=== PATIENT | female | born 1970 | race Caucasian/White ===

== ENCOUNTER 2017-09-05 20:04 | Emergency (ER) | payer OTHER ==
[~2017-09-05] VITALS: Ht 175.3 cm; Wt 104.0 kg
[2017-09-05 20:08] VITALS: TEMP 36.5; Ht 175.3 cm; Wt 104.0 kg
[2017-09-05] MEDS ORDERED: CLINDAMYCIN HCL 150 MG CAP PO STA (20:28)
[2017-09-05] MEDS ORDERED: LIDOCAINE/EPINEPH/TETRACAINE 1 EA SYR EXT STA (20:28)
[2017-09-05] MEDS ORDERED: CLINDAMYCIN 150MG HOME PACK PO ONE ×2 (20:30)
[2017-09-05] MEDS ORDERED: HYDROCODONE/ACETAMIN 5/325MG TAB PO STA (21:58)
[2017-09-05] MEDS ORDERED: CLIN300C2 PO (22:00)
--- NOTE | 2017-09-05 22:01 | EMERGENCY ROOM VISIT NOTE ---
ED Visit Note First contact with patient: 20:14 CHIEF COMPLAINT: Toothache HISTORY OF PRESENT ILLNESS: This is a 47-year-old female who presents to the emergency department with complaint of tooth and facial pain that started today. She states initially that she just noticed some swelling of her left lower jaw, it started to throb and become more painful this afternoon. She has taken Aleve with some improvement in her pain. The patient believes it is coming from left back lower molar, which she states is broken. The pain is now steady and severe and radiates to the face. The patient is in the process of getting a dentist appointment set up, and states that she has several bad teeth that need to be extracted. They rate their pain a 8/10 and throbbing. The patient denies any discharge from the mouth. She denies any fevers or chills, neck pain or swelling, difficulty swallowing, difficulty breathing, headache. REVIEW OF SYSTEMS: A 6 system review of systems was completed with positives and pertinent negatives listed in the HPI. ALLERGIES: Penicillins MEDICATIONS: No medications PMH: No significant past medical or surgical history. Tetanus is up-to-date. SOCIAL HISTORY: Lives at home. Current every day smoker. Denies alcohol or recreational drug use. PHYSICAL EXAM: Vitals are noted on the nurse's note and reviewed by myself. Vital signs stable, afebrile. GENERAL: Pleasant and cooperative, in no acute distress, non-diaphoretic, well-developed well-nourished. Mouth: The left lower second molar is noted to be broken off, very carious, and the gum is swollen and tender around it. There is an area of fluctuance noted on the lateral aspect of the tooth consistent with an abscess. She has a complete upper plate of dentures. Her lower teeth are very carious throughout with several broken and missing teeth, poor dentition throughout. The remainder of the pharynx and tonsils are without erythema, edema, or exudate. The airway is patent. There is mild facial swelling of the left lower jaw that is tender to palpation, no cervical or submandibular lymphadenopathy. The patient appears uncomfortable and in pain. The patient has overall poor dental hygiene. EARS: External auditory canals clear, tympanic membranes pearly blake without erythema or effusion bilaterally. HEART: Regular rate and rhythm, no murmurs, gallops or rubs. Normal peripheral perfusion. No edema. LUNGS: Clear to auscultation throughout with no wheezes, rhonchi, crackles, or stridor. ED COURSE: I examined the patient. Exam findings consistent for periapical abscess of the left lower second molar. Verbal consent was obtained to perform the procedure. LET gel was applied to the oral abscess for anesthesia. After adequate anesthesia achieved, the abscess was incised with a number 11 scalpel blade. A moderate amount of purulent and bloody material was released with more expressed by pressure. The abscess cavity was then copiously irrigated with sterile saline under pressure. The area was then packed with a gauze roll , with hemostasis achieved. The patient tolerated the procedure well. Patient was given a [place] for pain control after the procedure. She was encouraged to continue Tylenol and Motrin at home for pain management. Rx for clindamycin was sent to the pharmacy, first dose given in the ED and a take home pack. Patient was encouraged to follow closely with her dentist for definitive management of her broken and carious teeth. She was also given strict return precautions should her symptoms worsen, she verbalized understanding. Patient was discharged home in stable condition and ambulatory. Current/Historical Medications Scheduled Clindamycin Hcl (Cleocin), 300 MG PO QID Allergies Coded Allergies: Penicillins (Verified Allergy, Unknown, nauseated and dizzy, 09/05/17) Vital Signs Date Time Temp Pulse Resp B/P (MAP) Pulse Ox O2 Delivery O2 Flow Rate FiO2 09/05/17 22:26 81 16 136/79 97 09/05/17 20:08 36.5 83 18 142/86 96 Room Air Medications Administered Medications (Trade) Dose Ordered Sig/Hazel Route Start Time Stop Time Status Last Admin Dose Admin Tetracaine/ Epinephrine/ Lidocaine (L.e.t. Gel 4%/ 1:100/0.5%) 1 ea UD STAT EXT 09/05/17 20:28 09/05/17 20:42 DC 09/05/17 20:55 1 EA Clindamycin HCl (Cleocin Cap) 300 mg NOW STAT PO 09/05/17 20:28 09/05/17 20:42 DC 09/05/17 20:55 300 MG Clindamycin HCl (Cleocin 150MG Home Pack) 1 homepack UD ONCE PO 09/05/17 20:30 09/05/17 20:42 DC 09/05/17 20:55 1 HOMEPACK Clindamycin HCl (Cleocin 150MG Home Pack) 1 homepack UD ONCE PO 09/05/17 20:30 09/05/17 20:42 DC 09/05/17 20:55 1 HOMEPACK Acetaminophen/ Hydrocodone Bitart ([place] 5/325 Tab) 1 tab NOW STAT PO 09/05/17 21:58 09/05/17 21:59 DC 09/05/17 22:20 1 TAB Departure Information Impression Primary Impression: Dental abscess Dispostion Home / Self-Care Condition GOOD Prescriptions Clindamycin Hcl (CLEOCIN) 300 Mg Cap 300 MG PO QID for 9 Days, #36 CAP Prov: Alisa Gooden, [employer] 09/05/17 Referrals No Doctor, Assigned (PCP) Patient Instructions ED Abscess Dental, [facility] Additional Instructions You have been treated in the Emergency Department for Dental Pain. You have received pain medicine in the emergency department which impairs your ability to operate a vehicle. It is illegal for you to drive after receiving these medicines. You were prescribed clindamycin to be taken 300 mg 4 times a day for 10 days. This is an antibiotic. All antibiotics have the potential to cause diarrhea. Stop this medication and contact a medical provider if you were to develop any significant adverse side effects including: wheezing, shortness of breath, passing out, vomiting, or a diffuse rash. Always take antibiotics as directed and COMPLETE the ENTIRE course regardless of the improvement of your symptoms. For pain control, you can use the following [id number] medicines (if >12 yo): - Extra strength (500mg/tab) Tylenol (acetaminophen) 1-2 tabs every 6-8 hours as needed. Do not exceed 6 tablets in a 24 hour period. Avoid taking more than 3 grams (3000 mg) of Tylenol per day. This includes any other sources of acetaminophen you may take on a regular basis. - Regular strength (200 mg/tab) Advil (ibuprofen) 3 tabs every 6-8 hours as needed. Do not exceed a dose of 2400 mg per day. For best results, alternate between the ibuprofen and the Tylenol every 3-4 hours. Apply warm compresses to the left side of your r face frequently throughout the day for comfort. Swish and spit with warm salt water 4 times a day for the next 2-3 days to help the abscess in your mouth heal. Refrain from smoking cigarettes or using chewing tobacco until you have been evaluated by your dentist. Keeping beverages lukewarm and consuming soft foods can decrease your pain. You MUST seek evaluation of your dental pain by a dentist following your visit to the Emergency Department. The Emergency Department is not capable of treating dental issues long-term. You should call your dentist as soon as possible to make an appointment for evaluation of your dental pain. Return to the emergency department if you develop the following symptoms despite treatment course outlined above: fevers/chills, severe worsening pain, increased redness or swelling of your face or neck, difficulty swallowing or breathing, increased pus discharge from the mouth, or any other concerns. Work Instructions Return To Work: 2 days
[2017-09-05 22:26] VITALS: BP 136/79; PULSE 81; O2SAT 97
== END 2017-09-05 22:23 | disposition home or self-care (01) ==
LOC: C.EDB 20:05 → C.EDD 22:23
DX: K04.7 Periapical abscess without sinus (principal); Z88.0 Allergy status to penicillin; F17.200 Nicotine dependence, unspecified, uncomplicated

== ENCOUNTER 2024-03-07 01:21 | Inpatient (IN) ==
--- NOTE | 2024-03-07 01:38 | Emergency Department Note ---
Impression & Plan Open dislocation of right elbow, Alcohol intoxication, Obesity (BMI 30-39.9), Fall ED Provider Note CHIEF COMPLAINT: Right elbow pain HISTORY OF PRESENT ILLNESS: This 53 yo female patient with PMH of ETOH dependency, obesity presents to the emergency department after a fall tonight. Patient states she fell trying to take her dog out, was unable to get up and realized that her right arm was not working. She admits to 2 strong drinks this evening. EMS was called after her daughter found her. She believes she was on the ground for about 1 hour prior to getting her daughter's attention who was upstairs. There is a large laceration over the right elbow and the "bones are visible." 911 advised applying a tourniquet to the upper arm. BLS arrived and applied a second tourniquet. Both tourniquets were removed upon ALS arrival by my medical command without any significant bleeding thereafter. Patient states her tetanus status is not up-to-date. Patient denies any other injuries, states she did not hit her head. REVIEW OF SYSTEMS: A review of systems was performed with positives and pertinent negatives listed in the history of present illness. 10 systems were reviewed and are otherwise negative. ALLERGIES: see below MEDICATIONS: see below PMH: see below SOCIAL HISTORY: see below DDx: Intracranial hemorrhage, skull fracture, neck injury, elbow laceration, joint dislocation, fracture among others. PHYSICAL EXAM: Vital signs reviewed. General: Morbidly obese, disheveled 53-year-old female. In some discomfort. HEENT: No scleral icterus, PERRLA, neck supple. Small abrasion bleeding at the chin. Cardiovascular: Regular rate and rhythm, no extra sounds. Pulmonary: Clear to auscultation bilaterally, normal work of breathing. Abdomen: Soft, obese, nontender, nondistended, positive bowel sounds. Musculoskeletal: Right elbow deformity with notable 4 to 5 cm laceration, elbow joint visible and dislocated. Bleeding is well-controlled. Neurovascularly intact distally. Neurologic: Patient awake alert and oriented x 3, speech is clear. Intoxicated. Skin: Warm, dry, laceration as described above. EMERGENCY DEPARTMENT COURSE/MDM: This patient was evaluated and appeared to be in significant discomfort. Evaluation of the right elbow reveals an open dislocation with a large laceration. No active bleeding. X-rays were obtained and revealed no fracture however the joint is dislocated. Patient had been medicated with IV fentanyl prior to arrival. She was given IV hydration. CT imaging of the head and cervical spine were performed and reveal no evidence of acute traumatic findings. Cervical collar was removed. EKG reveals a normal sinus rhythm. Patient's laboratory work reveals that she is significantly intoxicated. She was given 2 g of IV Ancef and her tetanus status is updated. She was kept n.p.o. Dr. Dougherty of orthopedics was consulted and evaluated the patient in the emergency department. Pt was taken to the OR for definitive management. MONITORING: An order for cardiac monitoring was placed and the patient is noted to be in a normal sinus rhythm at 81 beats per minute. RADIOLOGY: X-ray of the right elbow to my interpretation reveals dislocation, no obvious fracture. Please see radiology's read CXR to my interpretation reveals no acute process. See radiology's overread CT imaging of the head to my interpretation and radiology's over read reveals no evidence of acute intracranial pathology. CT imaging of the cervical spine reveals no evidence of acute fracture or malalignment. EKG: To my interpretation reveals a normal sinus rhythm at 73 bpm. QTc is 451. Normal ST segments. No PVC, no PAC. DISPOSITION: Admission/OR I have personally spent 45 minutes of critical care time in the direct management of this patient. This was a life/limb threatening event. This 45 minutes is in excess of all separately billable procedures. Past Med/Surg History Problem List (Updated 03/08/24 @ 00:18 by Deirdre Leavitt MD) Fall (Acute) Obesity (BMI 30-39.9) (Acute) Alcohol intoxication (Acute) Open dislocation of right elbow (Acute) Injury of great toe (Acute) Medical History Encounter for pre-operative examination Alcohol intoxication Obesity Open dislocation of elbow Social History Smoking Status: Current every day smoker Tobacco Type: Cigarettes Cigarettes Per Day: 15; Second Hand Exposure: No; Do You Dip or Chew Tobacco: No; Tobacco Cessation Education Requested by Patient: Yes Hx Alcohol Use: Yes Alcohol type: hard liquor Hx Substance Use: No Preferred Language: Kosovan Communication Ability: Effective 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 Beliefs That Will Affect Care: None Current Living Situation: Family Other Information That Helps Us Care for You: No Feels Safe at Home: Yes Safety Concerns: Feels Safe At This Time Allergies Allergies Allergy/AdvReac Type Severity Reaction Status Date / Time aspirin Allergy Unknown Unknown Verified 03/07/24 02:50 Penicillins Allergy Unknown nauseated Verified 03/07/24 02:14 and dizzy Home Meds Home Medications Medication Instructions Recorded Confirmed No Known Home Medications 03/07/24 03/07/24 Results & Data (ED) Vital Signs Vital Signs - 24 hr 03/07/24 00:30 03/07/24 00:30 03/07/24 00:30 Temperature 36.7 C 36.6 C Temperature Source Oral Pulse Rate 80 80 Pulse Rate [Apical] Pulse Rate from SpO2 Sensor Respiratory Rate 15 15 Blood Pressure 138/63 138/63 Blood Pressure [Left Arm] Blood Pressure Mean 88 Blood Pressure Mean [Left Arm] Blood Pressure Position Lying Pulse Oximetry 92 92 92 Oxygen Delivery Method Room Air Room Air Room Air Sepsis Recent Fever Within 48 Hours No Sepsis New/Unexplained Change in Mental Status N/A Sepsis Action Taken by Nursing No Action Required 03/07/24 01:27 03/07/24 01:27 03/07/24 01:27 Temperature Temperature Source Pulse Rate 81 81 Pulse Rate [Apical] 83 Pulse Rate from SpO2 Sensor 80 Respiratory Rate 15 16 13 Blood Pressure 139/68 Blood Pressure [Left Arm] 139/68 Blood Pressure Mean 93 Blood Pressure Mean [Left Arm] 91 Blood Pressure Position Pulse Oximetry 94 95 92 Oxygen Delivery Method Room Air Room Air Room Air Sepsis Recent Fever Within 48 Hours Sepsis New/Unexplained Change in Mental Status Sepsis Action Taken by Nursing 03/07/24 01:31 03/07/24 02:15 03/07/24 03:06 Temperature Temperature Source Pulse Rate 81 79 Pulse Rate [Apical] Pulse Rate from SpO2 Sensor 85 75 Respiratory Rate 14 Blood Pressure Blood Pressure [Left Arm] Blood Pressure Mean Blood Pressure Mean [Left Arm] Blood Pressure Position Pulse Oximetry 91 91 Oxygen Delivery Method Room Air Room Air Sepsis Recent Fever Within 48 Hours Sepsis New/Unexplained Change in Mental Status Sepsis Action Taken by Nursing 03/07/24 03:18 03/07/24 03:57 Temperature 36.7 C Temperature Source Oral Pulse Rate 78 78 Pulse Rate [Apical] Pulse Rate from SpO2 Sensor 77 Respiratory Rate 17 17 Blood Pressure Blood Pressure [Left Arm] Blood Pressure Mean Blood Pressure Mean [Left Arm] Blood Pressure Position Pulse Oximetry 93 93 Oxygen Delivery Method Room Air Room Air Sepsis Recent Fever Within 48 Hours Sepsis New/Unexplained Change in Mental Status Sepsis Action Taken by [facility] Medications Current Medication List: was personally reviewed by me Laboratory Data Attestation: I reviewed the patient's lab results. 03/07/24 01:40 03/07/24 01:40 Lab Results 03/07/24 03/07/24 03/07/24 Range/Units 01:36 01:40 03:47 WBC 10.20 (4.8-10.8) K/ul RBC 4.96 (4.20-5.40) M/uL Hgb 16.8 H (12.0-16.0) g/dl POC Hgb 17.3 H (12.0-16.0) g/dl Hct 49.0 H (37.0-47.0) % POC Hct 51 H (37-47) % MCV 98.8 (80.0-100.0) fL MCH 33.9 (25.0-34.0) pg MCHC 34.3 (32.0-36.0) g/dL RDW Std Deviation 44.6 (36.4-46.3) fL RDW Coeff of Marisela 12.3 (11.5-14.5) % Plt Count 241 (130-400) K/uL MPV 9.7 (9.4-12.4) fL Immature Gran % (Auto) 0.4 % Neut % (Auto) 51.3 % Lymph % (Auto) 39.3 % Rhea % (Auto) 6.4 % Eos % (Auto) 2.0 % Baso % (Auto) 0.6 % Neut # (Auto) 5.24 (1.40-6.50) K/uL Lymph # (Auto) 4.01 H (1.20-3.40) K/uL Rhea # (Auto) 0.65 H (0.11-0.59) K/uL Eos # (Auto) 0.20 (0.00-0.50) K/uL Baso # (Auto) 0.06 (0.00-0.20) K/uL Immature Gran # (Auto) 0.04 (0.01-0.20) K/uL POC Sodium 137 (135-144) mmol/L Sodium 135 L (136-145) mmol/L POC Potassium 3.0 L (3.3-5.0) mmol/L Potassium 3.1 L (3.5-5.1) mmol/L POC Chloride 103 (101-112) mmol/L Chloride 102 (98-107) mmol/L Carbon Dioxide 20 L (21-32) mmol/L POC Total CO2 19 L (24-31) mmol/L Anion Gap 13 H (3-11) POC Anion Gap 20.0 (16-25) mmol/L POC BUN 8 (7-18) mg/dl BUN 9 (6-23) mg/dl Creatinine 0.63 (0.6-1.2) mg/dl POC Creatinine 0.9 (0.6-1.3) mg/dl Est Cr Clr Drug Dosing Not Reportable Est GFR ( Amer) 117.9 ml/min Est GFR (Non-Af Amer) 101.7 ml/min BUN/Creatinine Ratio 14.3 (10-20) Glucose 130 H (70-99(Fasting)) mg/dl POC Glucose (other) 127 H (70-99) mg/dl Calcium 8.8 (8.6-10.3) mg/dl POC Ioniz Calcium Dino 1.03 L (1.12-1.32) mmol/l Total Bilirubin 0.4 (0.2-1.0) mg/dl AST 18 (13-39) U/L ALT 13 (7-52) U/L Alkaline Phosphatase 56 (34-104) U/L Total Protein 7.4 (6.0-8.3) gm/dl Albumin 4.3 (3.4-5.0) gm/dl Globulin 3.1 (2.5-4.0) gm/dl Albumin/Globulin Ratio 1.4 (0.9-2) Urine Color Yellow Urine Appearance Clear (Clear) Urine pH 5.5 (4.5-7.5) Ur Specific Kirby 1.007 (1.000-1.030) Urine Protein Negative (Negative) Urine Glucose (UA) Negative (Negative) Urine Ketones Negative (Negative) Urine Blood Trace H (Negative) Urine Nitrite Negative (Negative) Urine Bilirubin Negative (Negative) Urine Urobilinogen Negative (Negative) Ur Leukocyte Esterase Negative (Negative) Urine WBC (Auto) 0-5 (0-5) /hpf Urine RBC (Auto) 0-2 (0-2) /hpf U Hyaline Cast (Auto) 0-2 (0-2) /lpf U Epithel Cells (Auto) 0-2 (0-2) /hpf Urine Bacteria (Auto) None Seen (None Seen) Ethyl Alcohol mg/dL 259.9 H (<10.0) mg/dl Administered Medications Acetaminophen (Acetaminophen 500 Mg Tab) 1,000 mg PO Q8 PRN PRN Reason: pain, fever Stop: 04/06/24 08:22 Last Admin: 03/07/24 08:54 Dose: 1,000 mg Documented By: RT Docusate Sodium (Docusate Sodium 100 Mg Cap) 100 mg PO BID [facility] Stop: 04/06/24 08:59 Last Admin: 03/07/24 19:45 Dose: 100 mg Documented By: Admin: 03/07/24 08:54 Dose: 100 mg Documented By: RT Cefazolin Sodium (Ancef 2000mg) 2,000 mg in 15 mls @ 3.75 mls/min IV Q8H SUKHJINDER Stop: 03/14/24 08:29 Last Admin: 03/07/24 16:26 Dose: 3.75 mls/min Documented By: Admin: 03/07/24 08:57 Dose: 3.75 mls/min Documented By: RT Ketorolac Tromethamine (Ketorolac 30 Mg/Ml Vial) 30 mg IV Q6H PRN PRN Reason: pain Last Admin: 03/07/24 08:54 Dose: 30 mg Documented By: RT Multivitamins (Multivitamin Tab) 1 tab PO QAM SUKHJINDER Stop: 04/06/24 08:59 Last Admin: 03/07/24 08:58 Dose: 1 tab Documented By: RT Nicotine (Nicotine 14 Mg/24 Hr Patch) 1 patch TD QAM [facility] Stop: 04/06/24 11:59 Last Admin: 03/07/24 12:05 Dose: 1 patch Documented By: RT Oxycodone HCl (Oxycodone Hcl Ir 5 Mg Tab (Immediate Release)) 5 - 10 mg PO Q4H PRN PRN Reason: Pain or Pre PT Stop: 03/21/24 08:22 Last Admin: 03/07/24 21:33 Dose: 5 mg Documented By: Admin: 03/07/24 10:58 Dose: 5 mg Documented By: RT Sennosides (Senna 8.6 Mg Tab) 17.2 mg PO HS SUKHJINDER Stop: 04/06/24 20:59 Last Admin: 03/07/24 19:45 Dose: 17.2 mg Documented By: GURWINDERS Tramadol HCl (Tramadol Hcl 50 Mg Tablet) 50 - 100 mg PO Q4H PRN PRN Reason: Pain & Pre PT Stop: 04/06/24 08:22 Last Admin: 03/07/24 22:49 Dose: 100 mg Documented By: Admin: 03/07/24 14:43 Dose: 100 mg Documented By: RT Discontinued Medications Diphtheria/Pertussis/Tetanus Vacc (Diphther/Tetan/Pertus Vaccine (Tdap, Adol/Adult) 0.5ml) 0.5 ml IM .ONCE ONE Stop: 03/07/24 01:28 Last Admin: 03/07/24 02:41 Dose: 0.5 ml Documented By: YONG Fentanyl Citrate (Fentanyl Citrate Pf 100 Mcg/2 Ml Vial) Confirm Administered Dose 100 mcg .ROUTE .STK-MED ONE Stop: 03/07/24 01:42 Last Admin: 03/07/24 02:36 Dose: 100 mcg Documented By: YONG Sodium Chloride (Nss) 1,000 mls @ 999 mls/hr IV .Q1H1M SUKHJINDER Stop: 03/07/24 02:30 Last Admin: 03/07/24 08:32 Dose: Not Given Documented By: RT Cefazolin Sodium (Ancef 2000mg) 2,000 mg in 15 mls @ 3.75 mls/min IV NOW STA Stop: 03/07/24 01:32 Last Admin: 03/07/24 03:30 Dose: 3.75 mls/min Documented By: BS Sodium Chloride (Nss) 1,000 mls @ 999 mls/hr IV .Q1H1M ONE Stop: 03/07/24 03:19 Last Infusion: 03/07/24 08:32 Dose: Infused Documented By: Admin: 03/07/24 03:01 Dose: 999 mls/hr Documented By: YONG Potassium Chloride (K Gary / Wtr) 10 meq in 100 mls @ 100 mls/hr IV Q1H SUKHJINDER Stop: 03/07/24 04:29 Last Admin: 03/07/24 08:32 Dose: Not Given Documented By: Infusion: 03/07/24 08:31 Dose: Infused Documented By: Admin: 03/07/24 03:01 Dose: 100 mls/hr Documented By: YONG Sodium Chloride (Nss) 1,000 mls @ 100 mls/hr IV .Q10H SUKHJINDER Stop: 03/08/24 06:00 Last Infusion: 03/07/24 16:47 Dose: Infused Documented By: Infusion: 03/07/24 15:19 Dose: Infused Documented By: Admin: 03/07/24 08:32 Dose: 100 mls/hr Documented By: RT Imaging Data Radiologist's Impression: Cervical Spine CT 03/07/24 01:28 Exam(s): CT C SPINE EXAM: CT Cervical Spine Without Intravenous Contrast CLINICAL HISTORY: Trauma. TECHNIQUE: Axial computed tomography images of the cervical spine without intravenous contrast. CTDI is 43 mGy and DLP is 624 mGy-cm. Automated exposure control was utilized for the study. A dose lowering technique was utilized adhering to the principles of ALARA. COMPARISON: No relevant prior studies available. FINDINGS: Vertebrae: The vertebral bodies are intact without acute osseous traumatic injury. No anterolisthesis or retrolisthesis is identified. The facet joints are well aligned without subluxation or dislocation. The pedicles, transverse processes and spinous processes are intact. Asymmetric multilevel facet hypertrophic osteophyte changes from C2-C5 levels. Discs/spinal canal/neural foramina: Disc space narrowing with minimal marginal hypertrophic osteophyte changes. No significant osseous central canal stenosis. Chronic osseous neural foraminal encroachment noted on the left C4-C5 level. Soft tissues: Unremarkable. Lung apices: The included lung apices demonstrate no evidence for acute traumatic injury. IMPRESSION: No acute osseous traumatic injury or significant abnormal alignment involving the cervical spine. Electronically signed by: Jose Diallo MD 03/07/24 02:[address] 03/07/24 01:28 Exam(s): CT HEAD Without Contrast EXAM: CT Head Without Intravenous Contrast CLINICAL HISTORY: Trauma. TECHNIQUE: Axial computed tomography images of the head/brain without intravenous contrast. CTDI is 79.03 mGy and DLP is 999.06 mGy-cm. Automated exposure control was utilized for the study. A dose lowering technique was utilized adhering to the principles of ALARA. COMPARISON: No relevant prior studies available. FINDINGS: Limitations: There is motion artifact, despite repeated imaging attempts, which degrades image quality on multiple image slices. Brain: No intracranial hemorrhage. No significant mass effect. No evidence for encephalomalacia. No significant white matter disease. Ventricles: Unremarkable. No ventriculomegaly. Bones/joints: No acute fracture. Incidental postoperative changes involving the anterior maxillary sinuses. Soft tissues: No significant overlying acute traumatic soft tissue abnormality. No radiopaque foreign body. Sinuses: Unremarkable as visualized. No acute sinusitis. Mastoid air cells: Unremarkable as visualized. No mastoid effusion. IMPRESSION: No acute intracranial process identified. Electronically signed by: Jose Diallo MD 03/07/24 02:20 AM Discharge Plan Visit Data Chief Complaint: Trauma Stated Complaint: FALL, ELBOW LAC POSS COMPOUND FX/DISLOCATION ED Provider: Deirdre Leavitt Discharge Problem: Open dislocation of right elbow, Alcohol intoxication, Obesity (BMI 30-39.9), Fall Discharge Instructions Interventions: ED Discharge Assessment Last Done: 03/07/24 03:57 Discharge Problem: Open dislocation of right elbow Qualifiers: Encounter type: initial encounter Qualified Code(s): S53.104A - Unspecified dislocation of right ulnohumeral joint, initial encounter; S51.001A - Unspecified open wound of right elbow, initial encounter Alcohol intoxication Qualifiers: Complication of substance-induced condition: with unspecified complication Q ualified Code(s): F10.929 - Alcohol use, unspecified with intoxication, unspecified Fall Qualifiers: Encounter type: initial encounter Qualified Code(s): W19.XXXA - Unspecified fall, initial encounter
[2024-03-07 02:03] LABS: Basophils # (auto) 0.06 K/uL (0.00-0.20); Basophils % (auto) 0.6 %; Hemoglobin 16.8 g/dl (12.0-16.0); Immature Granulocytes # (auto) 0.04 K/uL (0.01-0.20); Immature Granulocytes % (auto) 0.4 %; Lymphocytes # (auto) 4.01 K/uL (1.20-3.40); Lymphocytes % (auto) 39.3 %; Mean Corpuscular Hemoglobin 33.9 pg (25.0-34.0); Mean Corpuscular Hgb Conc 34.3 g/dL (32.0-36.0); Mean Corpuscular Volume 98.8 fL (80.0-100.0); Mean Platelet Volume 9.7 fL (9.4-12.4); Monocytes # (auto) 0.65 K/uL (0.11-0.59); Monocytes % (auto) 6.4 %; Neutrophils # (auto) 5.24 K/uL (1.40-6.50); Neutrophils % (auto) 51.3 %; Platelet Count 241 K/uL (130-400); RDW Coefficient of Variation 12.3 % (11.5-14.5); RDW Standard Deviation 44.6 fL (36.4-46.3); Red Blood Count 4.96 M/uL (4.20-5.40)
[2024-03-07 02:17] LABS: Alanine Aminotransferase 13 U/L (7-52); Albumin Globulin Ratio 1.4 (0.9-2); Albumin Level 4.3 gm/dl (3.4-5.0); Alkaline Phosphatase 56 U/L (34-104); Anion Gap 13 (3-11); Aspartate Aminotransferase 18 U/L (13-39); BUN Creatinine Ratio 14.3 (10-20); Bilirubin,Total 0.4 mg/dl (0.2-1.0); Blood Urea Nitrogen 9 mg/dl (6-23); Calcium 8.8 mg/dl (8.6-10.3); Carbon Dioxide 20 mmol/L (21-32); Chloride 102 mmol/L (98-107); Est GFR (African American) 117.9 ml/min; Est GFR (Non-African American) 101.7 ml/min; Globulin 3.1 gm/dl (2.5-4.0); Glucose 130 mg/dl (70-99(Fasting)); Potassium 3.1 mmol/L (3.5-5.1); Sodium 135 mmol/L (136-145); Total Protein 7.4 gm/dl (6.0-8.3)
--- NOTE | 2024-03-07 02:21 | CT Scan Report ---
Exam(s): CT HEAD Without Contrast EXAM: CT Head Without Intravenous Contrast CLINICAL HISTORY: Trauma. TECHNIQUE: Axial computed tomography images of the head/brain without intravenous contrast. CTDI is 79.03 mGy and DLP is 999.06 mGy-cm. Automated exposure control was utilized for the study. A dose lowering technique was utilized adhering to the principles of ALARA. COMPARISON: No relevant prior studies available. FINDINGS: Limitations: There is motion artifact, despite repeated imaging attempts, which degrades image quality on multiple image slices. Brain: No intracranial hemorrhage. No significant mass effect. No evidence for encephalomalacia. No significant white matter disease. Ventricles: Unremarkable. No ventriculomegaly. Bones/joints: No acute fracture. Incidental postoperative changes involving the anterior maxillary sinuses. Soft tissues: No significant overlying acute traumatic soft tissue abnormality. No radiopaque foreign body. Sinuses: Unremarkable as visualized. No acute sinusitis. Mastoid air cells: Unremarkable as visualized. No mastoid effusion. IMPRESSION: No acute intracranial process identified. Electronically signed by: Jose Diallo MD 03/07/24 02:20 AM
--- NOTE | 2024-03-07 02:23 | CT Scan Report ---
Exam(s): CT C SPINE EXAM: CT Cervical Spine Without Intravenous Contrast CLINICAL HISTORY: Trauma. TECHNIQUE: Axial computed tomography images of the cervical spine without intravenous contrast. CTDI is 43 mGy and DLP is 624 mGy-cm. Automated exposure control was utilized for the study. A dose lowering technique was utilized adhering to the principles of ALARA. COMPARISON: No relevant prior studies available. FINDINGS: Vertebrae: The vertebral bodies are intact without acute osseous traumatic injury. No anterolisthesis or retrolisthesis is identified. The facet joints are well aligned without subluxation or dislocation. The pedicles, transverse processes and spinous processes are intact. Asymmetric multilevel facet hypertrophic osteophyte changes from C2-C5 levels. Discs/spinal canal/neural foramina: Disc space narrowing with minimal marginal hypertrophic osteophyte changes. No significant osseous central canal stenosis. Chronic osseous neural foraminal encroachment noted on the left C4-C5 level. Soft tissues: Unremarkable. Lung apices: The included lung apices demonstrate no evidence for acute traumatic injury. IMPRESSION: No acute osseous traumatic injury or significant abnormal alignment involving the cervical spine. Electronically signed by: Jose Diallo MD 03/07/24 02:22 AM
[2024-03-07] MEDS: fentaNYL citrate PF 100 MCG/2 ML VIAL ONE (02:36)
[2024-03-07] MEDS: DIPHTHER/TETAN/PERTUS Vaccine (Tdap, Adol/Adult) 0.5mL IM ONE (02:41)
[2024-03-07] MEDS ORDERED: SUCCINYLCHOLINE CHLORIDE 20 MG/ML 10 ML VIAL IV ONE (02:42)
[2024-03-07] MEDS ORDERED: PROPOFOL IV EMULSION 10 MG/ML 20 ML VIAL IV ONE (02:42)
[2024-03-07] MEDS ORDERED: LIDOCAINE 2% 2 ML VIAL/AMP(20MG/ML) INFIL ONE (02:42)
[2024-03-07] MEDS ORDERED: fentaNYL citrate PF 100 MCG/2 ML VIAL ONE (02:43)
[2024-03-07] MEDS ORDERED: ONDANSETRON INJ 2 MG/ML 2 ML VIAL ONE (02:43)
[2024-03-07] MEDS ORDERED: PHENYLEPHRINE 100MCG/ML 10ML SYR IV ONE (02:43)
[2024-03-07] MEDS ORDERED: DEXAMETHASONE SOD INJ 4 MG/ML VIAL ONE (02:43)
--- NOTE | 2024-03-07 02:47 | History & Physical Report ---
Date of Service March 07, 2024 Assessment & Plan (1) Open dislocation of elbow: Plan: Patient is educated about the findings. She has a open dislocation of the right elbow. She is to receive tetanus and Ancef immediately. The elbow will be splinted in the position that it currently is in. She will be taken to the operating room as urgently as possible. Under anesthesia the elbow will be irrigated debrided and reduced. It is possible that the incisions may need to be extended and a repair may be necessary if indicated. Drain may be inserted. She will then be admitted to the hospital for intravenous antibiotics. Patient is educated about the surgical procedure. We talked about the risks and benefits of the rehabilitation and recovery. She agrees to proceed and informed consent was obtained. NPO. Her labs are noted and reviewed. Chest x-ray reviewed. CT scan of her head and neck reports are reviewed. Dr. Leavitt cleared her C-spine and removed her collar. History of Present Illness Primary Care Provider: Stephanie Newman MD Patient is a 53-year-old female. She reports that she was closing her door getting ready to go to bed at about 10 or 11:00 last evening. She spun around and hit her elbow and fell. She had difficulty getting up. She finally got her daughter's attention. EMS was summoned and she was brought to the emergency room with a right elbow injury which turns out to be an open elbow dislocation. She has a prior history of a right elbow injury back in 1979. She reports having a fracture which was treated with a cast. She did not have surgery. Since then she has had some weather-related achiness and occasional stiffness but otherwise normal function. She is right-hand dominant. She last ate or drank around 10 PM last evening. She complains of pain in the right elbow she denies tingling and numbness Allergies Allergy/AdvReac Type Severity Reaction Status Date / Time Penicillins Allergy Unknown nauseated Verified 03/07/24 02:14 and dizzy Home Medications Medication Instructions Recorded Confirmed Type No Known Home Medications 03/07/24 03/07/24 History Past Med/Surg History Problem List (Updated 03/07/24 @ 02:46 by Quinton Dougherty MD) Open dislocation of elbow Injury of great toe (Acute) Review of Systems Review of Systems: She denies any sick significant past medical history. There is no history of bleeding or blood clots allergies to metals. Her penicillin allergy is an adverse reaction rather than an actual allergy with hives at [facility]. She denies stroke seizure high blood pressure heart attack. Heart lung liver or kidney problems. There is no history of diabetes or cancer. No history of infections or MRSA. Past surgical history of gallbladder removal and having 5 children.No surgical complications. She reports having 2 mixed drinks. She smokes three quarters of a pack a day for many years. Physical Exam Physical Exam: On physical examination the elbow is dislocated. There is a approximate 5 cm laceration over the medial aspect of the elbow. Fat is visible and probably the medial epicondyle is palpable within the wound. The shoulder arm forearm hand and wrist are nontender. The elbow cannot be moved. She can open and close her fingers and has intact median radial and ulnar motor and sensory functions graded 5 out of 5 for her strength. Sensation is intact throughout the hand and she has a 2+ radial pulse. Results & Data Results & Data Vital Signs (Past 12 Hours) Vital Signs Pulse Pulse Resp BP Pulse Ox O2 Del Method 03/07/24 01:31 81 03/07/24 01:27 83 16 139/68 95 Room Air 03/07/24 01:27 81 15 94 Room Air 03/07/24 00:30 92 Room Air Laboratory Results Laboratory Results WBC 10.20 K/ul (4.8-10.8) 03/07/24 01:40 RBC 4.96 M/uL (4.20-5.40) 03/07/24 01:40 Hgb 16.8 g/dl (12.0-16.0) H 03/07/24 01:40 Hct 49.0 % (37.0-47.0) H 03/07/24 01:40 MCV 98.8 fL (80.0-100.0) 03/07/24 01:40 MCH 33.9 pg (25.0-34.0) 03/07/24 01:40 MCHC 34.3 g/dL (32.0-36.0) 03/07/24 01:40 RDW Std Deviation 44.6 fL (36.4-46.3) 03/07/24 01:40 RDW Coeff of Marisela 12.3 % (11.5-14.5) 03/07/24 01:40 Plt Count 241 K/uL (130-400) 03/07/24 01:40 MPV 9.7 fL (9.4-12.4) 03/07/24 01:40 Immature Gran % (Auto) 0.4 % 03/07/24 01:40 Neut % (Auto) 51.3 % 03/07/24 01:40 Lymph % (Auto) 39.3 % 03/07/24 01:40 Isabela % (Auto) 6.4 % 03/07/24 01:40 Eos % (Auto) 2.0 % 03/07/24 01:40 Baso % (Auto) 0.6 % 03/07/24 01:40 Neut # (Auto) 5.24 K/uL (1.40-6.50) 03/07/24 01:40 Lymph # (Auto) 4.01 K/uL (1.20-3.40) H 03/07/24 01:40 Isabela # (Auto) 0.65 K/uL (0.11-0.59) H 03/07/24 01:40 Eos # (Auto) 0.20 K/uL (0.00-0.50) 03/07/24 01:40 Baso # (Auto) 0.06 K/uL (0.00-0.20) 03/07/24 01:40 Immature Gran # (Auto) 0.04 K/uL (0.01-0.20) 03/07/24 01:40 Sodium 135 mmol/L (136-145) L 03/07/24 01:40 Potassium 3.1 mmol/L (3.5-5.1) L 03/07/24 01:40 Chloride 102 mmol/L (98-107) 03/07/24 01:40 Carbon Dioxide 20 mmol/L (21-32) L 03/07/24 01:40 Anion Gap 13 (3-11) H 03/07/24 01:40 BUN 9 mg/dl (6-23) 03/07/24 01:40 Creatinine 0.63 mg/dl (0.6-1.2) 03/07/24 01:40 Est Cr Clr Drug Dosing Not Reportable 03/07/24 01:40 Est GFR ( Amer) 117.9 ml/min 03/07/24 01:40 Est GFR (Non-Af Amer) 101.7 ml/min 03/07/24 01:40 BUN/Creatinine Ratio 14.3 (10-20) 03/07/24 01:40 Glucose 130 mg/dl (70-99(Fasting)) H 03/07/24 01:40 Calcium 8.8 mg/dl (8.6-10.3) 03/07/24 01:40 Total Bilirubin 0.4 mg/dl (0.2-1.0) 03/07/24 01:40 AST 18 U/L (13-39) 03/07/24 01:40 ALT 13 U/L (7-52) 03/07/24 01:40 Alkaline Phosphatase 56 U/L (34-104) 03/07/24 01:40 Total Protein 7.4 gm/dl (6.0-8.3) 03/07/24 01:40 Albumin 4.3 gm/dl (3.4-5.0) 03/07/24 01:40 Globulin 3.1 gm/dl (2.5-4.0) 03/07/24 01:40 Albumin/Globulin Ratio 1.4 (0.9-2) 03/07/24 01:40 Ethyl Alcohol mg/dL 259.9 mg/dl (<10.0) H 03/07/24 01:[address] 03/07/24 01:28 Exam(s): CT C SPINE EXAM: CT Cervical Spine Without Intravenous Contrast CLINICAL HISTORY: Trauma. TECHNIQUE: Axial computed tomography images of the cervical spine without intravenous contrast. CTDI is 43 mGy and DLP is 624 mGy-cm. Automated exposure control was utilized for the study. A dose lowering technique was utilized adhering to the principles of ALARA. COMPARISON: No relevant prior studies available. FINDINGS: Vertebrae: The vertebral bodies are intact without acute osseous traumatic injury. No anterolisthesis or retrolisthesis is identified. The facet joints are well aligned without subluxation or dislocation. The pedicles, transverse processes and spinous processes are intact. Asymmetric multilevel facet hypertrophic osteophyte changes from C2-C5 levels. Discs/spinal canal/neural foramina: Disc space narrowing with minimal marginal hypertrophic osteophyte changes. No significant osseous central canal stenosis. Chronic osseous neural foraminal encroachment noted on the left C4-C5 level. Soft tissues: Unremarkable. Lung apices: The included lung apices demonstrate no evidence for acute traumatic injury. IMPRESSION: No acute osseous traumatic injury or significant abnormal alignment involving the cervical spine. Electronically signed by: Jose Diallo MD 03/07/24 02:[address] 03/07/24 01:28 Exam(s): CT HEAD Without Contrast EXAM: CT Head Without Intravenous Contrast CLINICAL HISTORY: Trauma. TECHNIQUE: Axial computed tomography images of the head/brain without intravenous contrast. CTDI is 79.03 mGy and DLP is 999.06 mGy-cm. Automated exposure control was utilized for the study. A dose lowering technique was utilized adhering to the principles of ALARA. COMPARISON: No relevant prior studies available. FINDINGS: Limitations: There is motion artifact, despite repeated imaging attempts, which degrades image quality on multiple image slices. Brain: No intracranial hemorrhage. No significant mass effect. No evidence for encephalomalacia. No significant white matter disease. Ventricles: Unremarkable. No ventriculomegaly. Bones/joints: No acute fracture. Incidental postoperative changes involving the anterior maxillary sinuses. Soft tissues: No significant overlying acute traumatic soft tissue abnormality. No radiopaque foreign body. Sinuses: Unremarkable as visualized. No acute sinusitis. Mastoid air cells: Unremarkable as visualized. No mastoid effusion. IMPRESSION: No acute intracranial process identified. Electronically signed by: Jose Diallo MD 03/07/24 02:20 AM Code Status & VTE Plan VTE Prophylaxis Plan VTE Prophylaxis will be ordered: Yes
[2024-03-07] MEDS ORDERED: PROMETHAZINE HCL 6.25 MG in SODIUM CHLORIDE 0.9% 50 ML IV PRN (02:48)
[2024-03-07] MEDS ORDERED: fentaNYL citrate PF 100 MCG/2 ML VIAL IV PRN (02:48)
[2024-03-07] MEDS ORDERED: ePHEDrine sulfate 50 MG/ML AMP IV PRN (02:48)
[2024-03-07] MEDS ORDERED: HYDROmorphone INJ 1 MG/ML SYRINGE IV PRN (02:48)
[2024-03-07] MEDS ORDERED: ONDANSETRON INJ 2 MG/ML 2 ML VIAL IV PRN (02:48)
[2024-03-07] MEDS ORDERED: ATROPINE SULFATE 0.1 MG/ML 10ML SYR IV PRN (02:48)
--- NOTE | 2024-03-07 02:53 | Anesthesiology Consultation ---
Date of Service March 07, 2024 Assessment & Plan (1) Encounter for pre-operative examination: Chart Review Chart Review: Acceptable Risk for Surgery and Patient NOT seen in Pre Admission Testing Consults Requested none History Surgery Operation Date: 03/07/24 03:00 Proposed Procedures p Open Reduction Internal Fixation Elbow(Right) - Quinton Dougherty MD Height/Weight Height: 5 ft 9 in Weight: 121.9 kg Allergies Allergy/AdvReac Type Severity Reaction Status Date / Time aspirin Allergy Unknown Unknown Verified 03/07/24 02:50 Penicillins Allergy Unknown nauseated Verified 03/07/24 02:14 and dizzy Medications Home Medications Medication Instructions Recorded Confirmed Last Taken No Known Home Medications 03/07/24 03/07/24 Unknown Active Medications Generic Name Dose Route Start Last Admin Trade Name Freq PRN Reason Stop Dose Admin Potassium Chloride 10 meq in 100 mls @ 100 mls/hr 03/07/24 02:30 03/07/24 03:01 K Gary / Wtr IV 03/07/24 04:29 100 mls/hr Q1H SUKHJINDER Administration Past Medical History Medical History (Updated 03/07/24 @ 02:54 by Adrien Berg MD) Encounter for pre-operative examination Alcohol intoxication Obesity Open dislocation of elbow smoking Exercise / Class Metabolic Activity II 4-5 Yardwork/Stairs/Walk up hill Past Surgical History cholecystectomy, jaw surgery. Physical Exam Vital Signs Last Vital Signs Temp 36.7 C 03/07/24 00:30 Pulse 81 03/07/24 01:31 Resp 15 03/07/24 01:27 BP 139/68 03/07/24 01:27 Pulse Ox 94 03/07/24 01:27 O2 Del Method Room Air 03/07/24 01:27 Testing Laboratory Results 03/07/24 01:40 03/07/24 01:40 Electrocardiogram Date: 03/07/24 HR 73. NSR. Normal ECG. Other Testing c spine cleared by ct scan. head ct negative.
[2024-03-07] MEDS: SODIUM CHLORIDE 0.9% 1,000 ML IV ONE (03:01)
[2024-03-07] MEDS: POTASSIUM CHLORIDE / WTR 10 MEQ/100 ML PLCT IV SCH (03:01)
[2024-03-07] MEDS: ceFAZolin 2000MG 2,000 MG/15 ML SYR IV STA (03:30)
[2024-03-07 03:56] LABS: Appearance Urine Clear (Clear); Bacteria Urine Automated None Seen (None Seen); Bilirubin Urine Negative (Negative); Blood Urine Trace (Negative); Cast Urine Automated 0-2 /lpf (0-2); Color Urine Yellow; Epithelial Cell Urine Auto 0-2 /hpf (0-2); Glucose Urine UA Negative (Negative); Ketones Urine Negative (Negative); Leukocyte Esterase Urine Negative (Negative); Nitrite Urine Negative (Negative); Protein Urine Negative (Negative); RBC Urine Automated 0-2 /hpf (0-2); Specific Gravity Urine 1.007 (1.000-1.030); Urobilinogen Urine Negative (Negative); WBC Urine Automated 0-5 /hpf (0-5); pH Urine 5.5 (4.5-7.5)
[2024-03-07] MEDS ORDERED: ALBUTEROL HFA 8 GM INHALER INH ONE ×2 (04:12→04:31)
[2024-03-07] MEDS ORDERED: HYDROmorphone INJ 2 MG/ML SYR/VIAL ONE (04:36)
--- NOTE | 2024-03-07 06:02 | Operative Report ---
Post Operative Report Pre & Post Diagnosis Operation Date: 03/07/24 03:00 <No data on this case meets the specified criteria> Open posterior lateral dislocation of the right elbow I identified the patient and participated in the time-out.: Yes Procedure Operation Date: 03/07/24 03:00 <No data on this case meets the specified criteria> Irrigation and debridement, open reduction, repair of anterior capsule and the ulnar collateral ligament flexor pronator structures. Surgeon Quinton Dougherty MD Licensed Life And Health Agent SWETA Gaona no resident or fellow available Estimated Blood Loss 20 Findings Consistent with Post-Op Diagnosis Specimens None Drains Hemovac x 2. Anterior drain in the subcu tissues. The posterior drain in the joint. Anesthesia Type General Regional Complications none Disposition Accompanied Patient To Recovery: No Disposition: Recovery Room Indications Patient is 53 years old. She fell up approximately 11 PM today and sustained an open posterolateral dislocation of her right elbow. She was seen and evaluated in the emergency room. She was given tetanus and Ancef. Surgery surgery was recommended and she agreed to proceed. This was done on an urgent basis. Description of Procedure Informed consent. Patient identified. She identified the procedure site as the right elbow. I marked with my initials. A preoperative surgical [place] is performed. A preop dose of IV antibiotics was given. Her Ancef for infection prophylaxis due to her open elbow was given just prior to surgery in the holding area. She was taken to the OR positioned supine on the OR table with the right arm on a hand table. A tourniquet was applied to the right arm but not inflated. The splint was removed. There was an 8 cm transverse medial laceration which began at about the level of the medial epicondyle and proceeded anteriorly and laterally. The arm was cleaned with diluted peroxide and then prescrubbed with Betadine and then prepped with Betadine paint and draped in usual sterile fashion. DVT prophylaxis with mechanical devices intraoperatively. Postop early mobility. The elbow was in a dislocated state at the start of the procedure. With blunt retraction of the skin flaps the distal humerus was easily exposed. There was a rent through the skin subcutaneous fat flexor pronator muscles brachialis and anterior capsule. The capsule and flexor pronator's were subluxated posteriorly. The joint was exposed both posteriorly and medially as well as laterally with retraction and irrigation was performed with 6 L of sterile saline. Pulse lavage and bulb syringe. I could feel laterally that the humeral attachment of the lateral collateral ligament was avulsed. The visualized portion of the joint surfaces which included essentially the entire distal humerus as well as the articular surface of the proximal ulna were unremarkable. No loose bodies were noted. I did identify 1 hair medially but otherwise there is no significant contamination. The elbow joint was then easily reduced by lifting the anterior capsule and retracting the flexor pronator structures. The elbow at this point was lax but stable. I could extend to about 30 degrees short of full extension before there was any subluxation. Medical Records Auditor images were obtained at this point which showed that there was probably a avulsion off the lateral humeral epicondyle. Otherwise there was a concentric reduction. The anterior capsule was identified. It had ruptured about a centimeter from the distal attachment. I was able to carefully pull the proximal portion down over the anterior elbow joint and repair this in a loose fashion with the elbow in mid flexion using #1 Vicryl. 3 sutures were applied. Prior to complete closure I inserted a large Hemovac drain in the anterior aspect of the elbow joint and brought it out through the rent in the muscles medially. The elbow could be extended to beyond -30 without instability and there was no undue restraint from the anterior capsule. I then protected the ulnar nerve which was not directly visualized were seen during the case. I placed a retractor on the posterior aspect of the medial epicondyle directly on bone. I then inserted a 2.9 mm juggernaut anchor into the medial epicondyle at its central aspect. It was double loaded and I took the stitches in a horizontal mattress fashion full-thickness up through the flexor pronator muscles which had been avulsed off of the medial epicondyle. They were then repaired in a tension-free fashion with the arm in supination. The elbow was then stable out close to full extension. I did not force terminal extension. I obtained further radiographs which again showed the potential avulsion laterally but a concentric reduction on both the AP and lateral views. Further irrigation during closure with another 3 L of saline was performed for total of 9 L. Prior to closing the skin a drain was placed outside the joint but deep to the subcutaneous layer and brought out anteriorly. The brachialis muscle was ruptured. The neurovascular structures were identified anterior to this. The medial antebrachial cutaneous nerve was within the medial wound. It was at least partially intact although some of the smaller fibers may have ruptured. It was left in situ. I then loosely reapproximated the skin with 3-0 nylon using simple and horizontal mattress stitches. Some irregularity of the skin was debrided. The elbow was then placed into approximately 90 degrees of flexion with slight pronation to lock down the lateral side. Xeroform was applied along with fluffs in the antecubital fossa. Gauze pads soft wrap posterior splint from the shoulder to the metacarpophalangeal joints Vahe wrap and a sling. Patient wake from anesthesia without difficulty taken to recovery in stable condition. There were no specimens or complications. No counts. Blood loss is estimated to be 20 cc. At the conclusion the operation I attempted to contact the patient's who is listed as a contact but no one answered. Plan is to admit the patient to the hospital for approximately 24 to 48 hours of intravenous antibiotics. She will be immobilized in the splint and sling for 5 to 10 days and then will begin protected range of motion and physical therapy with the brace. I attest to the content of the Intraoperative Record and any orders documented therein. Any exceptions are noted below.
--- NOTE | 2024-03-07 06:25 | Operative Report ---
Post Operative Report Pre & Post Diagnosis Operation Date: 03/07/24 03:00 Pre-Op Diagnosis: Open dislocation of right elbow Post-Op Diagnosis: Open dislocation of right elbow I identified the patient and participated in the time-out.: Yes Procedure Operation Date: 03/07/24 03:00 Actual Procedures p Open Reduction, Irrigation Debridement, Repair of Anterior Capsule, Ulnar Collateral Ligament, Flexor Pronator Tendon of Right Elbow(Right) - Quinton Dougherty MD Surgeon Quinton Dougherty MD Auction Assistant SWETA Gaona no resident or fellow available Estimated Blood Loss 20 Findings Consistent with Post-Op Diagnosis Specimens none Description of Procedure I was present during the entire case assisting with positioning, prepping, draping, wound retraction, wound closure, dressing, splint and sling application. No fellow present. Please see Dr. Dougherty procedure note for specifics. I attest to the content of the Intraoperative Record and any orders documented therein. Any exceptions are noted below.
--- NOTE | 2024-03-07 06:45 | Anesthesiology Progress Note ---
Date of Service March 07, 2024 Anesthesia Post Procedure Vital Signs Vital Signs: Temp Pulse Pulse Resp BP BP Pulse Ox 03/07/24 03:57 36.7 C 78 17 93 03/07/24 03:18 78 17 93 03/07/24 03:06 79 14 91 03/07/24 02:15 91 03/07/24 01:31 81 03/07/24 01:27 81 13 139/68 92 03/07/24 01:27 83 16 139/68 95 03/07/24 01:27 81 15 94 03/07/24 00:30 36.6 C 80 15 138/63 92 03/07/24 00:30 36.7 C 80 15 138/63 92 03/07/24 00:30 92 O2 Del Method 03/07/24 03:57 Room Air 03/07/24 03:18 Room Air 03/07/24 03:06 Room Air 03/07/24 02:15 Room Air 03/07/24 01:31 03/07/24 01:27 Room Air 03/07/24 01:27 Room Air 03/07/24 01:27 Room Air 03/07/24 00:30 Room Air 03/07/24 00:30 Room Air 03/07/24 00:30 Room Air Pain Intensity Right Elbow: Pain Intensity: 7 Transfer of Care Handoff Completed per policy Notes Mental Status: alert / awake / arousable and participated in evaluation Patient Amnestic to Procedure: Yes Nausea / Vomiting: adequately controlled Pain: adequately controlled Airway Patency, RR, SpO2: see Notes below BP & HR: stable & adequate Hydration State: stable & adequate Anesthetic Complications: no major complications apparent and Pt Satisfied with anesthetic care Notes: pt will likely need supplemental oxygen postop given sig smoking history and longer general anesthetic.
[2024-03-07 07:08] LABS: iSTAT Creatinine 0.9 mg/dl (0.6-1.3); iSTAT Hemoglobin 17.3 g/dl (12.0-16.0); iSTAT Ionized Calcium 1.03 mmol/l (1.12-1.32)
--- NOTE | 2024-03-07 07:35 | Fluoroscopy Report ---
FL elbow RT 3V RTN CLINICAL HISTORY: RT ELBOW DISLOCATION COMPARISON STUDY: Right elbow 03/07/2024 FLUOROSCOPY TIME: 24 sac FLUOROSCOPY IMAGES: 4 Ka,r: 0.58 mGy FINDINGS: Status post reduction of the right elbow dislocation. Alignment appears anatomic. There is a surgical drain within the joint space. There is a deep laceration noted. Small ossific densities ad jacent to the medial and lateral epicondyles suggestive of small avulsion fractures. IMPRESSION: Status post reduction of the right elbow dislocation with anatomic alignment. ACT 112: Negative or not required by law. Electronically signed by: Clint Sequeira M.D. 03/07/2024 7:32 AM
--- NOTE | 2024-03-07 08:03 | XRay Report ---
XR elbow RT 2V CLINICAL HISTORY: trauma COMPARISON STUDY: None. FINDINGS: Posterior dislocation of the right elbow. No acute fractures identified. There is soft tiss ue gas surrounding the elbow which may involve the elbow joint there is a laceration at the antecubit al fossa. No radiopaque foreign bodies. IMPRESSION: 1. Posterior dislocation of the right elbow. 2. Soft tissue gas surrounding the elbow which may involve the elbow joint. 3. Soft tissue laceration at the antecubital fossa. ACT 112: Negative or not required by law. Electronically signed by: Clint Sequeira M.D. 03/07/2024 8:01 AM
--- NOTE | 2024-03-07 08:03 | XRay Report ---
XR chest 1V portable HISTORY: trauma COMPARISON: None. FINDINGS: The lungs are clear. Cardiac silhouette is normal in size. No pleural effusions. No pneumot horax. IMPRESSION: No acute process. ACT 112: Negative or not required by law. Electronically signed by: Clint Sequeira M.D. 03/07/2024 8:01 AM
[2024-03-07] MEDS ORDERED: METOCLOPRAMIDE HCL INJ 5 MG/ML 2 ML VIAL IV PRN (08:23)
[2024-03-07] MEDS ORDERED: MAGNESIUM HYDROXIDE SUSP 30 ML UDC PO PRN (08:23)
[2024-03-07] MEDS ORDERED: bisacodyL 10 MG SUPP PR PRN (08:23)
[2024-03-07] MEDS ORDERED: NALOXONE HCL 0.4 MG/1 ML VIAL/CARP IV PRN (08:23)
[2024-03-07] MEDS ORDERED: HYDROmorphone INJ 0.5 MG/0.5 ML SYR IV PRN (08:23)
[2024-03-07] MEDS ORDERED: diphenhydrAMINE Capsule 25 MG CAP PO PRN (08:23)
[2024-03-07] MEDS ORDERED: ALUMINUM/MAGNESIUM SUSP 30 ML UDC PO PRN (08:23)
[2024-03-07] MEDS: SODIUM CHLORIDE 0.9% 1,000 ML IV SCH ×2 (08:32)
[2024-03-07] MEDS: DOCUSATE SODIUM 100 MG CAP PO SCH (08:54)
[2024-03-07] MEDS: ACETAMINOPHEN 500 MG TAB PO PRN (08:54)
[2024-03-07] MEDS: KETOROLAC 30 MG/ML VIAL IV PRN (08:54)
[2024-03-07] MEDS: ceFAZolin 2000MG 2,000 MG/15 ML SYR IV SCH (08:57)
[2024-03-07] MEDS: MULTIVITAMIN TAB PO SCH (08:58)
[2024-03-07] MEDS: oxyCODONE HCL IR 5 MG TAB (IMMEDIATE RELEASE) PO PRN (10:58)
--- NOTE | 2024-03-07 11:40 | Orthopedic Progress Note ---
Date of Service March 07, 2024 Assessment & Plan (1) Open dislocation of elbow: Plan: Surgical findings were discussed with the patient. Recommend elevation icing splint. IV Ancef.She is neurovascularly intact. Smoking cessation and negative effects of smoking on wound healing are discussed. Admission and Anticipated Discharge Date Admission Date: March 07, 2024 Subjective Patient is resting comfortably in bed. She reports some right elbow pain but otherwise is okay. Physical Exam Physical Exam: Her Hemovac is not maintaining suction. The connections were okay. I tried about 5 times to get a to hold suction. I pinched off each individual to but that did not help. The Hemovac is pulled. It had perhaps 10 cc of bloody drainage in it. Her dressing is intact. Radial pulses 1+. The hand is not significantly swollen. Capillary refills less than 2 seconds. Median radial and ulnar motor and sensory functions are intact with 5 out of 5 strength Results & Data Vital Signs (Past 12 Hours) Vital Signs Temp Pulse Pulse Pulse Resp BP BP 03/07/24 10:46 36.8 C 98 H 18 154/77 H 03/07/24 09:53 36.7 C 98 H 16 162/76 H 03/07/24 08:55 36.9 C 110 H 20 163/79 H 03/07/24 08:25 36.9 C 98 H 18 153/84 H 03/07/24 07:55 03/07/24 07:55 36.8 C 99 H 20 154/84 H 03/07/24 07:35 96 H 15 135/96 03/07/24 07:25 36.9 C 99 H 20 129/76 03/07/24 07:15 98 H 12 135/75 03/07/24 07:05 97 H 22 146/80 H 03/07/24 06:55 102 H 12 201/92 H 03/07/24 06:45 102 H 15 149/73 H 03/07/24 06:35 108 H 21 209/108 H 03/07/24 06:27 36 C L 110 H 14 181/83 H 03/07/24 03:57 36.7 C 78 17 03/07/24 03:18 78 17 03/07/24 03:06 79 14 03/07/24 02:15 03/07/24 01:31 81 08/18/24 01:27 81 13 139/68 08/18/24 01:27 83 16 139/68 03/07/24 01:27 81 15 03/07/24 00:30 36.6 C 80 15 138/63 03/07/24 00:30 36.7 C 80 15 138/63 03/07/24 00:30 Pulse Ox O2 Del Method O2 Flow Rate 03/07/24 10:46 94 Room Air 03/07/24 09:53 94 Room Air 03/07/24 08:55 92 Nasal Cannula 2 03/07/24 08:25 90 Nasal Cannula 2 03/07/24 07:55 Nasal Cannula 2 03/07/24 07:55 92 Nasal Cannula 2 03/07/24 07:35 91 Nasal Cannula 4 03/07/24 07:25 90 Nasal Cannula 4 03/07/24 07:15 90 Nasal Cannula 5 03/07/24 07:05 90 Nasal Cannula 5 03/07/24 06:55 92 Nasal Cannula 5 03/07/24 06:45 90 Nasal Cannula 5 03/07/24 06:35 89 L Oxymask 9 03/07/24 06:27 89 L Oxymask 9 03/07/24 03:57 93 Room Air 03/07/24 03:18 93 Room Air 03/07/24 03:06 91 Room Air 03/07/24 02:15 91 Room Air 03/07/24 01:31 03/07/24 01:27 92 Room Air 03/07/24 01:27 95 Room Air 03/07/24 01:27 94 Room Air 03/07/24 00:30 92 Room Air 03/07/24 00:30 92 Room Air 03/07/24 00:30 92 Room Air
[2024-03-07] MEDS: NICOTINE 14 MG/24 HR PATCH TD SCH (12:05)
--- NOTE | 2024-03-07 12:05 | Electrocardiogram Report ---
Test Reason : Blood Pressure : */* mmHG Vent. Rate : 73 BPM Atrial Rate : 73 BPM P-R Int : 154 ms QRS Dur : 98 ms QT Int : 410 ms P-R-T Axes : 56 71 57 degrees QTcB Int : 451 ms Normal sinus rhythm Normal ECG No previous ECGs available Confirmed by Lavell Jarquin ([id number]) on 03/07/2024 12:04:58 PM Referred By: REFERRED SELF Confirmed By: Lavell Jarquin
[2024-03-07] MEDS: traMADol HCL 50 MG TABLET PO PRN (14:43)
[2024-03-07] MEDS: SENNA 8.6 MG TAB PO SCH (19:45)
[2024-03-08] MEDS: ONDANSETRON INJ 2 MG/ML 2 ML VIAL IV PRN (10:34)
--- NOTE | 2024-03-08 11:29 | Orthopedic Progress Note ---
Date of Service March 08, 2024 Assessment & Plan (1) Open dislocation of right elbow: Plan: PT/OT Case management eval Pain control with p.o. medication Ice with easy wrap Plan is to change dressing and splint tomorrow. Sling use when ambulatory PRP ordered and 20 mEq of oral potassium was given Patient will need a follow-up appointment advanced orthopedics in 10 to 14 days. Will most likely transition her to a hinged elbow brace and provide her with an order for physical therapy. Admission and Anticipated Discharge Date Admission Date: March 07, 2024 Subjective This 53-year-old female is day 1 status post right elbow Irrigation and debridement, open reduction, repair of anterior capsule and the ulnar collateral ligament flexor pronator structures. Patient states that her pain is well- controlled with the p.o. pain medication she is receiving. She states she has no numbness or tingling in the hands or fingers. She has full range of motion of her shoulder without discomfort. Her potassium is on the low side. We did order a PRP to check her potassium again today. I also ordered 20 mill equivalents p.o. Currently she denies chest pain, shortness of breath, fever, chills, sweats, nausea, vomiting, diarrhea or difficulty voiding. Review of Systems Review of Systems: All systems reviewed & are unremarkable except as noted in Subjective Physical Exam Physical Exam: Right upper extremity: Splint is clean dry and intact and left in place. Patient states is very comfortable. She has full range of motion of her shoulder. She is able to move all of her digits. She is able to resist compression of digits 2 through 5. She is able to resist traction pincer grasp between thumb and index finger. She has no pain with resisted flexion or ext ension at the IP or MCP joint of her thumb. She is able to detect light sensation to touch over the pads of all digits. Capillary refill is less than than 2 seconds. Results & Data Vital Signs (Past 12 Hours) Vital Signs Temp Pulse Resp BP Pulse Ox O2 Del Method 03/08/24 07:34 36.7 C 80 16 132/74 94 Room Air 03/08/24 06:58 36.8 C 73 16 120/63 95 Room Air 03/08/24 04:31 36.5 C 80 16 135/72 94 Room Air Diagnostic Findings Laboratory Results WBC 10.20 K/ul (4.8-10.8) 08/18/24 01:40 RBC 4.96 M/uL (4.20-5.40) 03/07/24 01:40 Hgb 16.8 g/dl (12.0-16.0) H 03/07/24 01:40 POC Hgb 17.3 g/dl (12.0-16.0) H 03/07/24 01:36 Hct 49.0 % (37.0-47.0) H 03/07/24 01:40 POC Hct 51 % (37-47) H 03/07/24 01:36 MCV 98.8 fL (80.0-100.0) 03/07/24 01:40 MCH 33.9 pg (25.0-34.0) 03/07/24 01:40 MCHC 34.3 g/dL (32.0-36.0) 03/07/24 01:40 RDW Std Deviation 44.6 fL (36.4-46.3) 03/07/24 01:40 RDW Coeff of Marisela 12.3 % (11.5-14.5) 03/07/24 01:40 Plt Count 241 K/uL (130-400) 03/07/24 01:40 MPV 9.7 fL (9.4-12.4) 03/07/24 01:40 Immature Gran % (Auto) 0.4 % 03/07/24 01:40 Neut % (Auto) 51.3 % 03/07/24 01:40 Lymph % (Auto) 39.3 % 03/07/24 01:40 [place] % (Auto) 6.4 % 03/07/24 01:40 Eos % (Auto) 2.0 % 03/07/24 01:40 Baso % (Auto) 0.6 % 03/07/24 01:40 Neut # (Auto) 5.24 K/uL (1.40-6.50) 03/07/24 01:40 Lymph # (Auto) 4.01 K/uL (1.20-3.40) H 03/07/24 01:40 [place] # (Auto) 0.65 K/uL (0.11-0.59) H 03/07/24 01:40 Eos # (Auto) 0.20 K/uL (0.00-0.50) 03/07/24 01:40 Baso # (Auto) 0.06 K/uL (0.00-0.20) 03/07/24 01:40 Immature Gran # (Auto) 0.04 K/uL (0.01-0.20) 03/07/24 01:40 POC Sodium 137 mmol/L (135-144) 03/07/24 01:36 Sodium 135 mmol/L (136-145) L 03/07/24 01:40 POC Potassium 3.0 mmol/L (3.3-5.0) L 03/07/24 01:36 Potassium 3.1 mmol/L (3.5-5.1) L 03/07/24 01:40 POC Chloride 103 mmol/L (101-112) 03/07/24 01:36 Chloride 102 mmol/L (98-107) 03/07/24 01:40 Carbon Dioxide 20 mmol/L (21-32) L 03/07/24 01:40 POC Total CO2 19 mmol/L (24-31) L 03/07/24 01:36 Anion Gap 13 (3-11) H 03/07/24 01:40 POC Anion Gap 20.0 mmol/L (16-25) 03/07/24 01:36 POC BUN 8 mg/dl (7-18) 03/07/24 01:36 BUN 9 mg/dl (6-23) 03/07/24 01:40 Creatinine 0.63 mg/dl (0.6-1.2) 03/07/24 01:40 POC Creatinine 0.9 mg/dl (0.6-1.3) 03/07/24 01:36 Est Cr Clr Drug Dosing Not Reportable 03/07/24 01:40 Est GFR ( Amer) 117.9 ml/min 03/07/24 01:40 Est GFR (Non-Af Amer) 101.7 ml/min 03/07/24 01:40 BUN/Creatinine Ratio 14.3 (10-20) 03/07/24 01:40 Glucose 130 mg/dl (70-99(Fasting)) H 03/07/24 01:40 POC Glucose (other) 127 mg/dl (70-99) H 03/07/24 01:36 Calcium 8.8 mg/dl (8.6-10.3) 03/07/24 01:40 POC Ioniz Calcium Dino 1.03 mmol/l (1.12-1.32) L 03/07/24 01:36 Total Bilirubin 0.4 mg/dl (0.2-1.0) 03/07/24 01:40 AST 18 U/L (13-39) 03/07/24 01:40 ALT 13 U/L (7-52) 03/07/24 01:40 Alkaline Phosphatase 56 U/L (34-104) 03/07/24 01:40 Total Protein 7.4 gm/dl (6.0-8.3) 03/07/24 01:40 Albumin 4.3 gm/dl (3.4-5.0) 03/07/24 01:40 Globulin 3.1 gm/dl (2.5-4.0) 03/07/24 01:40 Albumin/Globulin Ratio 1.4 (0.9-2) 03/07/24 01:40 Urine Color Yellow 03/07/24 03:47 Urine Appearance Clear (Clear) 03/07/24 03:47 Urine pH 5.5 (4.5-7.5) 03/07/24 03:47 Ur Specific [place] 1.007 (1.000-1.030) 03/07/24 03:47 Urine Protein Negative (Negative) 03/07/24 03:47 Urine Glucose (UA) Negative (Negative) 03/07/24 03:47 Urine Ketones Negative (Negative) 03/07/24 03:47 Urine Blood Trace (Negative) H 03/07/24 03:47 Urine Nitrite Negative (Negative) 03/07/24 03:47 Urine Bilirubin Negative (Negative) 03/07/24 03:47 Urine Urobilinogen Negative (Negative) 03/07/24 03:47 Ur Leukocyte Esterase Negative (Negative) 03/07/24 03:47 Urine WBC (Auto) 0-5 /hpf (0-5) 03/07/24 03:47 Urine RBC (Auto) 0-2 /hpf (0-2) 03/07/24 03:47 U Hyaline Cast (Auto) 0-2 /lpf (0-2) 03/07/24 03:47 U Epithel Cells (Auto) 0-2 /hpf (0-2) 03/07/24 03:47 Urine Bacteria (Auto) None Seen (None Seen) 03/07/24 03:47 Ethyl Alcohol mg/dL 259.9 mg/dl (<10.0) H 03/07/24 01:[address] 03/07/24 01:28 Exam(s): CT C SPINE EXAM: CT Cervical Spine Without Intravenous Contrast CLINICAL HISTORY: Trauma. TECHNIQUE: Axial computed tomography images of the cervical spine without intravenous contrast. CTDI is 43 mGy and DLP is 624 mGy-cm. Automated exposure control was utilized for the study. A dose lowering technique was utilized adhering to the principles of ALARA. COMPARISON: No relevant prior studies available. FINDINGS: Vertebrae: The vertebral bodies are intact without acute osseous traumatic injury. No anterolisthesis or retrolisthesis is identified. The facet joints are well aligned without subluxation or dislocation. The pedicles, transverse processes and spinous processes are intact. Asymmetric multilevel facet hypertrophic osteophyte changes from C2-C5 levels. Discs/spinal canal/neural foramina: Disc space narrowing with minimal marginal hypertrophic osteophyte changes. No significant osseous central canal stenosis. Chronic osseous neural foraminal encroachment noted on the left C4-C5 level. Soft tissues: Unremarkable. Lung apices: The included lung apices demonstrate no evidence for acute traumatic injury. IMPRESSION: No acute osseous traumatic injury or significant abnormal alignment involving the cervical spine. Electronically signed by: Jose Diallo MD 03/07/24 02:22 AM Chest X-Ray 03/07/24 01:28 XR chest 1V portable HISTORY: trauma COMPARISON: None. FINDINGS: The lungs are clear. Cardiac silhouette is normal in size. No pleural effusions. No pneumothorax. IMPRESSION: No acute process. ACT 112: Negative or not required by law. Electronically signed by: Clint Sequeira M.D. 03/07/2024 8:[address] 03/07/24 01:28 Exam(s): CT HEAD Without Contrast EXAM: CT Head Without Intravenous Contrast CLINICAL HISTORY: Trauma. TECHNIQUE: Axial computed tomography images of the head/brain without intravenous contrast. CTDI is 79.03 mGy and DLP is 999.06 mGy-cm. Automated exposure control was utilized for the study. A dose lowering technique was utilized adhering to the principles of ALARA. COMPARISON: No relevant prior studies available. FINDINGS: Limitations: There is motion artifact, despite repeated imaging attempts, which degrades image quality on multiple image slices. Brain: No intracranial hemorrhage. No significant mass effect. No evidence for encephalomalacia. No significant white matter disease. Ventricles: Unremarkable. No ventriculomegaly. Bones/joints: No acute fracture. Incidental postoperative changes involving the anterior maxillary sinuses. Soft tissues: No significant overlying acute traumatic soft tissue abnormality. No radiopaque foreign body. Sinuses: Unremarkable as visualized. No acute sinusitis. Mastoid air cells: Unremarkable as visualized. No mastoid effusion. IMPRESSION: No acute intracranial process identified. Electronically signed by: Jose Diallo MD 03/07/24 02:20 AM Elbow X-Ray 03/07/24 03:00 FL elbow RT 3V RTN CLINICAL HISTORY: RT ELBOW DISLOCATION COMPARISON STUDY: Right elbow 03/07/2024 FLUOROSCOPY TIME: 24 sac FLUOROSCOPY IMAGES: 4 Ka,r: 0.58 mGy FINDINGS: Status post reduction of the right elbow dislocation. Alignment appears anatomic. There is a surgical drain within the joint space. There is a deep laceration noted. Small ossific densities adjacent to the medial and lateral epicondyles suggestive of small avulsion fractures. IMPRESSION: Status post reduction of the right elbow dislocation with anatomic alignment. ACT 112: Negative or not required by law. Electronically signed by: Clint Sequeira M.D. 03/07/2024 7:32 AM (1) Open dislocation of right elbow Encounter type: initial encounter Qualified Code(s): S53.104A - Unspecified dislocation of right ulnohumeral joint, initial encounter; S51.001A - Unspecified open wound of right elbow, initial encounter
[2024-03-08 12:01] LABS: BUN Creatinine Ratio 15.9 (10-20); Calcium 9.5 mg/dl (8.6-10.3); Creatinine Clr Calc Pharmacy 130.2 ml/min; Est GFR (African American) 114.4 ml/min; Est GFR (Non-African American) 98.7 ml/min; Potassium 3.5 mmol/L (3.5-5.1)
[2024-03-08] MEDS: POTASSIUM CHLORIDE CRTAB 20 MEQ TABCR PO STA (12:06)
[2024-03-08 19:56] VITALS: TEMP 97.9
[2024-03-09 07:43] VITALS: BP 109/71; PULSE 74; RESP 16; O2SAT 94
--- NOTE | 2024-03-09 15:06 | Orthopedic Progress Note ---
Date of Service March 09, 2024 Assessment & Plan (1) Open dislocation of right elbow: Plan: She has received postop antibiotics. She is neurovascularly intact and doing well. She can be discharged home today. She will elevate ice keep clean and dry wear sling. Smoking cessation and NicoDerm patches recommended. Follow-up with [facility] on Friday for wound check and to be placed into a brace and start physical therapy. She will see me approximately 2 weeks postop. If there is any problems with severe pain swelling fevers numbness or any other problems or questions please call the office or go to the emergency room. Stool softener pain medication anti-inflammatory. Her potassium is within normal limits yesterday. She is afebrile with stable vital signs. Patient is advised to follow-up with her primary care physician. Her RBCs and hematocrit are elevated. Admission and Anticipated Discharge Date Admission Date: March 07, 2024 Orthopedic Progress Note Positional numbness. Pain well-controlled. Eager to go home. Neurovascular function intact radial pulses 1+. 45 degrees supination 60 degrees pronation. Gentle elbow movement from approximately 0/62 100 degrees. The medial elbow is benign there is no fluctuance erythema or drainage. (1) Open dislocation of right elbow Encounter type: initial encounter Qualified Code(s): S53.104A - Unspecified dislocation of right ulnohumeral joint, initial encounter; S51.001A - Unspecified open wound of right elbow, initial encounter
--- NOTE | 2024-03-09 15:07 | Discharge Summary ---
Date of Service March 09, 2024 Admission HPI Per Admitting Provider Patient is a 53-year-old female. She reports that she was closing her door getting ready to go to bed at about 10 or 11:00 last evening. She spun around and hit her elbow and fell. She had difficulty getting up. She finally got her daughter's attention. EMS was summoned and she was brought to the emergency room with a right elbow injury which turns out to be an open elbow dislocation. She has a prior history of a right elbow injury back in 1979. She reports having a fracture which was treated with a cast. She did not have surgery. Since then she has had some weather-related achiness and occasional stiffness but otherwise normal function. She is right-hand dominant. She last ate or drank around 10 PM last evening. She complains of pain in the right elbow she denies tingling and numbness Discharge Data Consultations 03/07/24 02:00 ED Decision to Admit Stat Procedures Performed Operation Date: 03/07/24 03:00 Actual Procedures p Repair of Anterior Capsule, Ulnar Collateral Ligament, Flexor Pronator Tendon of Right Elbow(Right) - Quinton Dougherty MD s Open Reduction, Irrigation Debridement, (Right) - Quinton Dougherty MD Hospital Course (1) Open dislocation of right elbow: Patient was seen in the emergency room for orthopedic consultation. She had an open dislocation of the right elbow after sustaining a fall at home. X-rays showed no evidence of fracture but dislocation. An urgent orthopedic consultation was placed and she was seen evaluated with Dr. Dougherty. She went immediately to the emergency room for irrigation and debridement, open reduction and tendon repair of her anterior capsule, ulnar collateral ligament, flexor pronator tendon of her right elbow. She was admitted to [facility] postoperatively. Her surgery was performed with general anesthesia. She was started on IV Ancef which was continued for 48 hours after her procedure. She was instructed on smoking cessation and was provided with a NicoDerm patch. She was placed in a postoperative splint. She was nonweightbearing right upper extremity. Advised to keep the splint on at all times to keep it clean and dry. Sling right arm for comfort and when out of bed. She was allowed out of bed as tolerated. Vital signs remained stable. She was given a regular diet. On postoperative day 1 she developed some hypokalemia and was started on potassium 20 mEq daily. PRP on postoperative day 2 was normal. She was given IV Dilaudid and oxycodone as needed for pain control. She stated her pain lessened each day. She states it was well-controlled with Toradol and oxycodone. She was given a regular diet and her home medications were continued. Encouraged aspirin 81 mg daily for DVT prophylaxis. She was allowed out of bed. Physical therapy and Occupational Therapy consults were placed for finger range of motion and shoulder range of motion. Her dressings were changed on postoperative day 2 and her incision was clean, dry and intact. She was deemed safe for discharge on March 09. She was discharged to her home in stable condition with family in March 09, 2024. Discharge instructions were reviewed. All questions were answered. Follow-up appointments have been scheduled.
== END 2024-03-09 15:51 | disposition home or self-care (01) | DRG 502 ==
LOC: ED 01:21 → 3E 06:20